=== PATIENT | female | born 1975 | race Caucasian/White ===

== ENCOUNTER 2022-02-09 11:38 | Observation (INO) ==
--- NOTE | 2022-02-09 11:49 | Emergency Department Note ---
History of Present Illness General Chief complaint: Vaginal Bleeding Stated complaint: VAGINAL BLEEDING FOR OVER A MONTH Time Seen by Provider: 02/09/22 11:47 History of Present Illness This 46-year-old female patient presents to the emergency department for evaluation of abnormal vaginal bleeding. She states that she has been having her period for the past month. The bleeding got significantly worse over the past 2 days. She is going through 4-5 large pads a day. Has been having blood clots the size of a ping pong ball the past 2 days. Usually has normal, mild, regular periods so this is abnormal for her. Her mom had significant periods whenever she started to go through menopause. She does not feel that she could be and does not feel that she is at risk for STIs. She also feels short of breath because of losing so much blood per patient. Had some mild chest discomfort walking to the car this morning, but no chest pain otherwise. History of artificial mitral heart valve and pacemaker and is on Coumadin. She sees Dr. Ocampo of cardiology and last saw him about 1.5 weeks ago and she was started on an oral iron supplement. She has not had any recent blood work to check for anemia per patient. Her last blood transfusion was May 2020. Allergies Allergy/AdvReac Type Severity Reaction Status Date / Time vancomycin AdvReac Verified 02/09/22 11:57 Past Med/Surg History Medical History Acute asthma exacerbation History of Coumadin therapy Pacemaker Surgical History H/O mitral valve replacement with mechanical valve Social History Smoking Status: Never smoker Preferred Language: Faroese Feels Safe at Home: Yes Review of Systems See HPI for pertinent positives & negatives. and A total of 10 systems reviewed and were otherwise negative Physical Exam Vital Signs Vital Signs - 24 hr 02/09/22 11:42 02/09/22 12:53 02/09/22 14:00 Temperature 36.6 C Temperature Source Temporal Artery Scan Pulse Rate 84 Pulse Rate [Apical] Pulse Rate [Finger] 70 64 Pulse Rhythm [Apical] Pulse Strength [Apical] Respiratory Rate 22 18 16 Respiratory Effort / Characteristics Respiratory Depth Respiratory Pattern Blood Pressure 122/68 Blood Pressure [Right Arm] 101/49 L 99/44 L Blood Pressure Mean 86 Blood Pressure Mean [Right Arm] 66 62 Blood Pressure Position [Right Arm] Pulse Oximetry 100 98 98 Oxygen Delivery Method Room Air Room Air Sepsis Recent Fever Within 48 Hours No Sepsis New/Unexplained Change in Mental Status No Sepsis Action Taken by Nursing No Action Required 02/09/22 16:00 02/09/22 16:44 Temperature 36.8 C Temperature Source Oral Pulse Rate Pulse Rate [Apical] 73 Pulse Rate [Finger] 92 H Pulse Rhythm [Apical] Regular Pulse Strength [Apical] Normal Respiratory Rate 18 18 Respiratory Effort / Characteristics Non-Labored Spontaneous Respiratory Depth Normal Respiratory Pattern Regular Blood Pressure Blood Pressure [Right Arm] 106/40 L 99/44 L Blood Pressure Mean Blood Pressure Mean [Right Arm] 62 62 Blood Pressure Position [Right Arm] Lying Pulse Oximetry 100 99 Oxygen Delivery Method Room Air Sepsis Recent Fever Within 48 Hours Sepsis New/Unexplained Change in Mental Status Sepsis Action Taken by Nursing VITALS: Vitals are noted on the nurse's note and reviewed by myself. GENERAL: 46-year-old female, who appears pale, but nontoxic and in no acute distress, non-diaphoretic, well-developed well-nourished. SKIN: Capillary refill <2 sec. No tenting of the skin. HEAD: Normocephalic, atraumatic. EARS: External auditory canals clear, tympanic membranes pearly garcia without erythema or effusion bilaterally. EYES: PERRLA. EOMI. Conjunctivae without injection, sclerae without icterus. NOSE: Patent without discharge. MOUTH: Mucous membranes moist. Uvula midline. Airway patent. NECK: Supple without nuchal rigidity. HEART: Regular rate and rhythm without artificial heart valve sound noted without other obvious murmurs, gallops, rubs. LUNGS: Clear to auscultation bilaterally without wheezes, rales or rhonchi. No retractions or accessory muscle use. ABDOMEN: Positive bowel sounds x 4. Normal tympanic percussion. Soft, nontender, without masses or organomegaly. Quintana sign negative. No guarding or rebound tenderness. No focal RLQ or LLQ tenderness. PELVIC EXAM: Permission to perform the exam. Editor Newspaper in the room for the exam. External genitalia normal. Vaginal vault with a large amount of bright red blood initially. The there were also multiple clots that were removed during the exam with continued bright red bleeding. Due to the patient's body habitus and the amount of bleeding I had difficulty visualizing the cervix or cervical os. No cervical motion tenderness. Uterus nontender. Adnexa nontender without obvious masses. MUSCULOSKELETAL: No gross musculoskeletal defects. NEURO: Patient was alert and oriented to person place and time. No focal neurological deficits. Course Administered Medications Discontinued Medications Sodium Chloride (Nss 1000ml) 1,000 mls @ 999 mls/hr IV .Q1H1M MERLE Stop: 02/09/22 13:15 Last Infusion: 02/09/22 16:08 Dose: 0 mls/hr Documented By: Admin: 02/09/22 12:51 Dose: 999 mls/hr Documented By: YEE Sodium Chloride (Nss 1000ml) 1,000 mls @ 999 mls/hr IV .Q1H1M ONE Stop: 02/09/22 15:52 Last Admin: 02/09/22 16:09 Dose: 999 mls/hr Documented By: YEE Estrogens Conjugated 25 mg/ (Syringe) 5 mls @ 1 mls/min IV NOW ONE Stop: 02/09/22 16:19 Last Admin: 02/09/22 16:19 Dose: 1 mls/min Documented By: YEE Medical Decision Making Differential Diagnosis Differential diagnosis includes hypermenorrhea, polymenorrhea, , , ectopic , endocrine abnormality, salpingitis, cervicitis, caogulopathy, neoplasm, polyps, ovarian cyst, myoma of uterus, hormonal i mmbalance, atrophic vaginitis, or others. Laboratory Data Attestation: I reviewed the patient's lab results. Result diagrams: 02/09/22 15:42 02/09/22 12:38 Lab Results 02/09/22 02/09/22 02/09/22 Range/Units 12:38 12:38 12:38 WBC 8.33 (4.8-10.8) K/ul RBC 1.80 L (3.93-5.22) M/uL Hgb 5.8 L* (12.0-16.0) g/dl Hct 17.5 L* (34.1-44.9) % MCV 97.2 (80.0-100.0) fL MCH 32.2 (25.0-34.0) pg MCHC 33.1 (32.0-36.0) g/dL RDW Std Deviation 49.8 H (36.4-46.3) fL RDW Coeff of Paco 14.3 (11.5-14.5) % Plt Count 241 (130-400) K/uL MPV 10.3 (9.4-12.3) fL Immature Gran % (Auto) 0.7 % Neut % (Auto) 85.5 % Lymph % (Auto) 8.8 % [place] % (Auto) 3.6 % Eos % (Auto) 0.7 % Baso % (Auto) 0.7 % Neut # (Auto) 7.12 H (1.4-6.5) K/uL Lymph # (Auto) 0.73 L (1.2-3.4) K/uL [place] # (Auto) 0.30 (0.24-0.82) K/uL Eos # (Auto) 0.06 (0-0.50) K/uL Baso # (Auto) 0.06 (0-0.2) K/uL Immature Gran # (Auto) 0.06 H (0.00-0.02) K/uL Polychromasia 1+ Tear Drop Cells 1+ PT 26.1 H (9.0-12.0) Seconds INR 2.6 H (0.9-1.1) APTT 30.1 (21.0-31.0) Seconds PTT Ratio 1.1 Sodium 134 L (136-145) mmol/L Potassium 3.9 (3.5-5.1) mmol/L Chloride 101 (98-107) mmol/L Carbon Dioxide 27 (21-32) mmol/L Anion Gap 6 (3-11) BUN 12 (6-23) mg/dl Creatinine 0.88 (0.6-1.2) mg/dl Est Cr Clr Drug Dosing 98.7 ml/min Est GFR ( Amer) 90.7 ml/min Est GFR (Non-Af Amer) 78.2 ml/min BUN/Creatinine Ratio 13.6 (10-20) Glucose 154 H (70-99(Fasting)) mg/dl Calcium 8.7 (8.5-10.1) mg/dl Total Bilirubin 0.5 (0.2-1.0) mg/dl AST 17 (13-39) U/L ALT 14 (7-52) U/L Alkaline Phosphatase 54 (34-104) U/L Troponin I High Sens < 2.3 (0-14) pg/ml Total Protein 6.5 (6.0-8.3) gm/dl Albumin 3.8 (3.4-5.0) gm/dl Globulin 2.7 (2.5-4.0) gm/dl Albumin/Globulin Ratio 1.4 (0.9-2) TSH (0.300-4.500) uIu/ml Free T4 (0.61-1.60) ng/dl HCG, Qual (Negative) Urine Color Urine Appearance (Clear) Urine pH (4.5-7.5) Ur Specific [place] (1.000-1.030) Urine Protein (Negative) Urine Glucose (UA) (Negative) Urine Ketones (Negative) Urine Blood (Negative) Urine Nitrite (Negative) Urine Bilirubin (Negative) Urine Urobilinogen (Negative) Ur Leukocyte Esterase (Negative) Urine WBC (Auto) (0-5) /hpf Urine RBC (Auto) (0-4) /hpf U Hyaline Cast (Auto) (0-5) /lpf U Epithel Cells (Auto) (0-5) /lpf Urine Bacteria (Auto) (Negative) Blood Type Blood Type Recheck Antibody Screen Antibody Identification Crossmatch 02/09/22 02/09/22 02/09/22 Range/Units 12:38 12:38 13:08 WBC (4.8-10.8) K/ul RBC (3.93-5.22) M/uL Hgb (12.0-16.0) g/dl Hct (34.1-44.9) % MCV (80.0-100.0) fL MCH (25.0-34.0) pg MCHC (32.0-36.0) g/dL RDW Std Deviation (36.4-46.3) fL RDW Coeff of Paco (11.5-14.5) % Plt Count (130-400) K/uL MPV (9.4-12.3) fL Immature Gran % (Auto) % Neut % (Auto) % Lymph % (Auto) % [place] % (Auto) % Eos % (Auto) % Baso % (Auto) % Neut # (Auto) (1.4-6.5) K/uL Lymph # (Auto) (1.2-3.4) K/uL [place] # (Auto) (0.24-0.82) K/uL Eos # (Auto) (0-0.50) K/uL Baso # (Auto) (0-0.2) K/uL Immature Gran # (Auto) (0.00-0.02) K/uL Polychromasia Tear Drop Cells PT (9.0-12.0) Seconds INR (0.9-1.1) APTT (21.0-31.0) Seconds PTT Ratio Sodium (136-145) mmol/L Potassium (3.5-5.1) mmol/L Chloride (98-107) mmol/L Carbon Dioxide (21-32) mmol/L Anion Gap (3-11) BUN (6-23) mg/dl Creatinine (0.6-1.2) mg/dl Est Cr Clr Drug Dosing ml/min Est GFR ( Amer) ml/min Est GFR (Non-Af Amer) ml/min BUN/Creatinine Ratio (10-20) Glucose (70-99(Fasting)) mg/dl Calcium (8.5-10.1) mg/dl Total Bilirubin (0.2-1.0) mg/dl AST (13-39) U/L ALT (7-52) U/L Alkaline Phosphatase (34-104) U/L Troponin I High Sens (0-14) pg/ml Total Protein (6.0-8.3) gm/dl Albumin (3.4-5.0) gm/dl Globulin (2.5-4.0) gm/dl Albumin/Globulin Ratio (0.9-2) TSH 15.625 H (0.300-4.500) uIu/ml Free T4 0.93 (0.61-1.60) ng/dl HCG, Qual Negative (Negative) Urine Color Urine Appearance (Clear) Urine pH (4.5-7.5) Ur Specific [place] (1.000-1.030) Urine Protein (Negative) Urine Glucose (UA) (Negative) Urine Ketones (Negative) Urine Blood (Negative) Urine Nitrite (Negative) Urine Bilirubin (Negative) Urine Urobilinogen (Negative) Ur Leukocyte Esterase (Negative) Urine WBC (Auto) (0-5) /hpf Urine RBC (Auto) (0-4) /hpf U Hyaline Cast (Auto) (0-5) /lpf U Epithel Cells (Auto) (0-5) /lpf Urine Bacteria (Auto) (Negative) Blood Type B Positive Blood Type Recheck Antibody Screen POSITIVE A Antibody Identification Anti-K Crossmatch See Detail 02/09/22 02/09/22 02/09/22 Range/Units 14:10 14:30 15:42 WBC (4.8-10.8) K/ul RBC (3.93-5.22) M/uL Hgb 5.3 L* (12.0-16.0) g/dl Hct 16.6 L* (34.1-44.9) % MCV (80.0-100.0) fL MCH (25.0-34.0) pg MCHC (32.0-36.0) g/dL RDW Std Deviation (36.4-46.3) fL RDW Coeff of Paco (11.5-14.5) % Plt Count (130-400) K/uL MPV (9.4-12.3) fL Immature Gran % (Auto) % Neut % (Auto) % Lymph % (Auto) % [place] % (Auto) % Eos % (Auto) % Baso % (Auto) % Neut # (Auto) (1.4-6.5) K/uL Lymph # (Auto) (1.2-3.4) K/uL [place] # (Auto) (0.24-0.82) K/uL Eos # (Auto) (0-0.50) K/uL Baso # (Auto) (0-0.2) K/uL Immature Gran # (Auto) (0.00-0.02) K/uL Polychromasia Tear Drop Cells PT (9.0-12.0) Seconds INR (0.9-1.1) APTT (21.0-31.0) Seconds PTT Ratio Sodium (136-145) mmol/L Potassium (3.5-5.1) mmol/L Chloride (98-107) mmol/L Carbon Dioxide (21-32) mmol/L Anion Gap (3-11) BUN (6-23) mg/dl Creatinine (0.6-1.2) mg/dl Est Cr Clr Drug Dosing ml/min Est GFR ( Amer) ml/min Est GFR (Non-Af Amer) ml/min BUN/Creatinine Ratio (10-20) Glucose (70-99(Fasting)) mg/dl Calcium (8.5-10.1) mg/dl Total Bilirubin (0.2-1.0) mg/dl AST (13-39) U/L ALT (7-52) U/L Alkaline Phosphatase (34-104) U/L Troponin I High Sens (0-14) pg/ml Total Protein (6.0-8.3) gm/dl Albumin (3.4-5.0) gm/dl Globulin (2.5-4.0) gm/dl Albumin/Globulin Ratio (0.9-2) TSH (0.300-4.500) uIu/ml Free T4 (0.61-1.60) ng/dl HCG, Qual (Negative) Urine Color Red Urine Appearance Turbid A (Clear) Urine pH 7.5 (4.5-7.5) Ur Specific [place] 1.036 H (1.000-1.030) Urine Protein 4+ H (Negative) Urine Glucose (UA) Trace H (Negative) Urine Ketones Negative (Negative) Urine Blood 3+ H (Negative) Urine Nitrite Negative (Negative) Urine Bilirubin Negative (Negative) Urine Urobilinogen Negative (Negative) Ur Leukocyte Esterase 1+ H (Negative) Urine WBC (Auto) 0 (0-5) /hpf Urine RBC (Auto) 0-4 (0-4) /hpf U Hyaline Cast (Auto) 0 (0-5) /lpf U Epithel Cells (Auto) 0-5 (0-5) /lpf Urine Bacteria (Auto) Negative (Negative) Blood Type Blood Type Recheck B Positive Antibody Screen Antibody Identification Crossmatch Imaging Data Radiologist's Impression: Pelvis Ultrasound 02/09/22 12:02 PELVIC ULTRASOUND, TRANSABDOMINAL AND TRANSVAGINAL HISTORY: abnormal vaginal bleeding COMPARISON: None. FINDINGS: Uterus: 11.1 x 4.3 x 4.5 cm. No uterine masses. There are few small nabothian cysts at the cervix. Endometrial stripe: 4 mm in thickness. Right ovary: Obscured by overlying bowel gas. No adnexal masses. Left ovary: Normal in size and demonstrates normal color flow. This contains a 4.1 cm simple cyst. Miscellaneous:No pelvic free fluid. IMPRESSION: 1. A 4.1 cm left ovarian cyst. This is likely benign. Follow-up pelvic ultrasound in 2-3 months should be performed to ensure resolution. 2. Normal uterus/endometrium. 3. The right ovary was obscured by overlying bowel gas. No adnexal masses identified. ACT 112: Negative or not required by law. Electronically signed by: Stanislav Ortega M.D. 02/09/2022 2:17 PM MDM Narrative I examined the patient. An IV lock was placed and labs were drawn. The patient was given a total of 2 L normal saline solution bolus and though her blood pressure was on the lower side, it remained stable. She declined any medication for pain. Serum was negative. Pelvic ultrasound was reviewed myself and read by radiology as above and shows a 4.1 cm left ovarian cyst which is lik reno benign. Normal uterus/endometrium. Hemoglobin did come back significantly low at 5.8 with hematocrit of 17.5. Normal platelet count. INR is 2.6 on Coumadin. Glucose elevated at 154 and sodium 134, but CMP otherwise unremarkable. TSH elevated at 15.625 - she is currently on levothyroxine. Urinalysis without obvious evidence for UTI. EKG showed sinus rhythm at 67 bpm with short NE interval, but no acute ST or T wave changes. Troponin was normal. Unfortunately due to the patient's abnormal antibodies on type and screen it was difficult to obtain blood for the patient. I was unable to see the cervix or cervical os on pelvic exam due to the patient's body habitus and the vaginal bleeding. I spoke with Dr. Victor of [facility] who came down to the emergency department to evaluate the patient. After discussion with cardiology, Dr. Victor gave the patient IV Premarin and her Coumadin will be held. Dr. Victor attempted to place a Jarrett in the uterus in the emergency department, but it was unsuccessful. The patient's repeat H&H showed a hemoglobin of 5.3 and hematocrit of 16.6 as we were still waiting for the blood products. Dr. Victor will take the patient to the OR for placement of balloon tamponade. Blood bank stated the blood products should be ready by the time the patient reached to the OR. The patient's care was transferred to Dr. Victor in stable condition. Please refer to her dictation for further details. Impression & Plan Severe anemia, H/O mitral valve replacement with mechanical valve, History of Coumadin therapy, Pacemaker, Abnormal uterine bleeding (AUB) Discharge Plan Visit Data Chief Complaint: Vaginal Bleeding Stated Complaint: VAGINAL BLEEDING FOR OVER A MONTH ED Provider: Ajay Ludwig ED Midlevel Provider: Milagros Sommer Patient Disposition: Admitted As Inpatient Forms Stand Alone Forms: [facility] Referrals Referrals: Jewel Sherman CRNP [Outside Practitioners] -
[2022-02-09] MEDS ORDERED: SODIUM CHLORIDE 0.9% 1000ML 1,000 ML IV SCH (12:15)
[2022-02-09 13:12] LABS: Hematocrit (blood only) 17.5 % (34.1-44.9); Hemoglobin 5.8 g/dl (12.0-16.0); Mean Corpuscular Hemoglobin 32.2 pg (25.0-34.0); Mean Corpuscular Hgb Conc 33.1 g/dL (32.0-36.0); Mean Corpuscular Volume 97.2 fL (80.0-100.0); Mean Platelet Volume 10.3 fL (9.4-12.3); Platelet Count 241 K/uL (130-400); RDW Coefficient of Variation 14.3 % (11.5-14.5); RDW Standard Deviation 49.8 fL (36.4-46.3); White Blood Count 8.33 K/ul (4.8-10.8)
[2022-02-09 13:16] LABS: Pregnancy Test, Serum Negative (Negative)
[2022-02-09 13:18] LABS: Alanine Aminotransferase 14 U/L (7-52); Albumin Globulin Ratio 1.4 (0.9-2); Albumin Level 3.8 gm/dl (3.4-5.0); Alkaline Phosphatase 54 U/L (34-104); Anion Gap 6 (3-11); Aspartate Aminotransferase 17 U/L (13-39); BUN Creatinine Ratio 13.6 (10-20); Bilirubin,Total 0.5 mg/dl (0.2-1.0); Blood Urea Nitrogen 12 mg/dl (6-23); Calcium 8.7 mg/dl (8.5-10.1); Carbon Dioxide 27 mmol/L (21-32); Chloride 101 mmol/L (98-107); Creatinine Clr Calc Pharmacy 98.7 ml/min; Est GFR (African American) 90.7 ml/min; Est GFR (Non-African American) 78.2 ml/min; Globulin 2.7 gm/dl (2.5-4.0); Glucose 154 mg/dl (70-99(Fasting)); INR 2.6 (0.9-1.1); Partial Thromboplastin Ratio 1.1; Partial Thromboplastin Time 30.1 Seconds (21.0-31.0); Potassium 3.9 mmol/L (3.5-5.1); Prothrombin Time 26.1 Seconds (9.0-12.0); Sodium 134 mmol/L (136-145); Total Protein 6.5 gm/dl (6.0-8.3)
[2022-02-09 13:22] LABS: Troponin I High Sensitivity < 2.3 pg/ml (0-14)
[2022-02-09 13:28] LABS: Basophils # (auto) 0.06 K/uL (0-0.2); Basophils % (auto) 0.7 %; Eosinophils # (auto) 0.06 K/uL (0-0.50); Eosinophils % (auto) 0.7 %; Immature Granulocytes # (auto) 0.06 K/uL (0.00-0.02); Immature Granulocytes % (auto) 0.7 %; Lymphocytes # (auto) 0.73 K/uL (1.2-3.4); Lymphocytes % (auto) 8.8 %; Monocytes % (auto) 3.6 %; Neutrophils # (auto) 7.12 K/uL (1.4-6.5); Neutrophils % (auto) 85.5 %; Polychromasia 1+; Tear Drop Cells 1+
[2022-02-09 13:31] LABS: Thyroid Stimulating Hormone 15.625 uIu/ml (0.300-4.500)
[2022-02-09] MEDS ORDERED: SODIUM CHLORIDE 0.9% 250 ML IV PRN ×2 (13:38→17:30)
[2022-02-09 14:05] LABS: T4 Free Thyroxine 0.93 ng/dl (0.61-1.60)
--- NOTE | 2022-02-09 14:19 | Ultrasound Report ---
PELVIC ULTRASOUND, TRANSABDOMINAL AND TRANSVAGINAL HISTORY: abnormal vaginal bleeding COMPARISON: None. FINDINGS: Uterus: 11.1 x 4.3 x 4.5 cm. No uterine masses. There are few small nabothian cysts at the cervix. Endometrial stripe: 4 mm in thickness. Right ovary: Obscured by overlying bowel gas. No adnexal masses. Left ovary: Normal in size and demonstrates normal color flow. This contains a 4.1 cm simple cyst. Miscellaneous:No pelvic free fluid. IMPRESSION: 1. A 4.1 cm left ovarian cyst. This is likely benign. Follow-up pelvic ultrasound in 2-3 months shoul d be performed to ensure resolution. 2. Normal uterus/endometrium. 3. The right ovary was obscured by overlying bowel gas. No adnexal masses identified. ACT 112: Negative or not required by law. Electronically signed by: Stanislav Ortega M.D. 02/09/2022 2:17 PM
--- NOTE | 2022-02-09 14:47 | Electrocardiogram Report ---
Test Reason : Blood Pressure : / mmHG Vent. Rate : 067 BPM Atrial Rate : 067 BPM P-R Int : 098 ms QRS Dur : 086 ms QT Int : 430 ms P-R-T Axes : 048 062 022 degrees QTc Int : 454 ms Sinus rhythm with sinus arrhythmia with short W[place] Otherwise normal ECG When compared with ECG of 22-AUG-2020 20:16, W[place] interval has decreased Confirmed by Ajay Kamara ([id number]) on 02/09/2022 2:46:56 PM Referred By: Juancho Catalan Confirmed By:Ajay Kamara
[2022-02-09] MEDS ORDERED: SODIUM CHLORIDE 0.9% 1000ML 1,000 ML IV ONE (14:52)
[2022-02-09 15:32] LABS: Bacteria Urine Automated Negative (Negative); Bilirubin Urine Negative (Negative); Blood Urine 3+ (Negative); Cast Urine Automated 0 /lpf (0-5); Epithelial Cell Urine Auto 0-5 /lpf (0-5); Glucose Urine UA Trace (Negative); Ketones Urine Negative (Negative); Leukocyte Esterase Urine 1+ (Negative); Nitrite Urine Negative (Negative); RBC Urine Automated 0-4 /hpf (0-4); Specific Gravity Urine 1.036 (1.000-1.030); Urobilinogen Urine Negative (Negative); WBC Urine Automated 0 /hpf (0-5); pH Urine 7.5 (4.5-7.5)
[2022-02-09 15:33] LABS: Color Urine Red; Protein Urine 4+ (Negative)
[2022-02-09 15:34] LABS: Appearance Urine Turbid (Clear)
--- NOTE | 2022-02-09 15:47 | OB/GYN Consultation ---
Date of Consultation February 09, 2022 Assessment & Plan (1) Severe anemia: (2) Abnormal uterine bleeding (AUB): (3) History of Coumadin therapy: Plan Patient with acute anemia with aub. No obvious lesion on u/s but lining thin. Doubt benefit from D&C but think balloon tamponade may be of benefit while we use IV premarin to try to stabilize lining. Patient has some strange ab+ blood and so I have not been able to get blood to transfuse for many hours and for this reason I do not want to risk not having another measure in place to help her bleeding, ie. rationale for balloon. I tried it at bedside but could not place. OR readied to take pt for EUA, poss D&C and balloon placement. Patient aware and agreeable and consent signed and reviewed. IV premarin is given. Did speak to cardiology, Hossein, who agrees that this is ok measure to trial (pt never with blood clot) and also ok with holding coumadin for 2-3d if needed. She may require further surgery if this management not successful, including emergency hysterectomy and she is aware. Anesthesia aware. >60min spent in and out at bedside, face to face and non face to face, documentation and coordination of care. History of Present Illness Reason for Consultation: acute vaginal bleeding, severe anemia Requesting Physician: Dr. Ludwig Attending Physician: Dr. Ludwig History of Present Illness 46yo with cc of heavy and prolonged vaginal bleeding with severe anemia who I am asked to see as psychology tech consult. Patient has been having mostly regular cycles. No psychology tech care in 5-15yrs she can't remember. She maybe skipped a cycle in oct but then had period at [facility] [place]. It went away but then came back about 5d after it stopped and has just become heavier and heavier. Using depends type pads in last few days and changing 5x/d. Opted to come to ER today. She takes coumadin for heart valve, no history of dvt/pe. Under the care of Dr. Catalan. Hgb in Er 5.8 today about noon and repeated recently 5.3. She feels dizzy and occasional SOB but ok otherwise. She notes sa but spouse had vasectomy. She had u/s done today with EL 4mm, uterus no obvious lesions. No history of abnormal paps. OBH: x 2 GYNH: nl pap history, very remote All Active Problems Pacemaker Acute asthma exacerbation History of Coumadin therapy H/O mitral valve replacement with mechanical valve Allergies Allergy/AdvReac Type Severity Reaction Status Date / Time vancomycin AdvReac Verified 02/09/22 11:57 Patient History Medical History Acute asthma exacerbation History of Coumadin therapy Pacemaker Surgical History H/O mitral valve replacement with mechanical valve Social History Smoking Status: Never smoker Preferred Language: Frisian Feels Safe at Home: Yes Review of Systems Constitutional: as per Subjective / HPI Physical Exam Constitutional: WD/WN, vitals as above Gastrointestinal (Abdomen): Percussion/Palpation: abdomen soft (obese); abdo men nontender and no guarding Neurologic: grossly normal Psychiatric: A+Ox3, euthymic affect Genitourinary: normal external appearance Speculum/Bimanual Exam: normal bimanual exam, normal appearance of the vagina, normal appearance of the cervix and + uterus enlarged (top normal); uterus nontender and no adnexal mass Bedside exam, attempt to place juarez in uterus but unable to do successfully despite holding anterior lip with ring. poor visualization. on exam x 2 by about one hr, 25cc clot in vault each time and no active bleeding from os but at least 20cc liquidy blood in vault. Results & Data ([facility]) Vital Signs (Past 12 Hours) Vital Signs Temp Pulse Pulse Resp BP BP Pulse Ox 02/09/22 14:00 64 16 99/44 L 98 02/09/22 12:53 70 18 101/49 L 98 02/09/22 11:42 97.9 F 84 22 122/68 100 O2 Del Method 02/09/22 14:00 02/09/22 12:53 Room Air 02/09/22 11:42 Room Air PG Care Time/CCT Total # of Minutes Spent Total Time Spent with Patient: Total time spent is greater than 50% in coordination of care (as documented) at patient's floor/unit and/or counseling patient: Coding Level of Care Code 59769 Office/OBS Consult Lvl 5 (57 - DECISION FOR SURGERY) Diagnoses Severe anemia D64.9 Abnormal uterine bleeding (AUB) N93.9 History of Coumadin therapy Z92.29
[2022-02-09] MEDS ORDERED: LIDOCAINE 2% MPF LOCAL 5 ML VIAL INFIL ONE ×2 (16:00→16:03)
[2022-02-09] MEDS ORDERED: ROCURONIUM BROMIDE 10 MG/ML 5 ML VIAL IV ONE ×5 (16:01)
[2022-02-09] MEDS ORDERED: PROPOFOL IV EMULSION 10 MG/ML 20 ML VIAL IV ONE (16:02)
[2022-02-09] MEDS ORDERED: ESTROGENS, CONJUGATED 25 MG in SYRINGE 0 ML IV ONE (16:15)
[2022-02-09 16:27] LABS: Hematocrit (blood only) 16.6 % (34.1-44.9); Hemoglobin 5.3 g/dl (12.0-16.0)
--- NOTE | 2022-02-09 16:43 | Anesthesiology Consultation ---
Date of Service February 09, 2022 Assessment & Plan Chart Review Chart Review: Acceptable Risk for Surgery Consults Requested none History Surgery Operation Date: 02/09/22 16:30 Proposed Procedures p Dilation and Afia Victor MD, FACOG Height/Weight Height: 5 ft 2 in Weight: 122.6 kg Allergies Allergy/AdvReac Type Severity Reaction Status Date / Time vancomycin AdvReac Verified 02/09/22 11:57 Past Medical History Medical History Acute asthma exacerbation History of Coumadin therapy Pacemaker Past Surgical History Surgical History H/O mitral valve replacement with mechanical valve Social History Smoking Status: Never smoker Physical Exam Vital Signs Last Vital Signs Temp 36.6 C 02/09/22 11:42 Pulse 92 H 02/09/22 16:00 Resp 18 02/09/22 16:00 BP 106/40 L 02/09/22 16:00 Pulse Ox 100 02/09/22 16:00 O2 Del Method 02/09/22 12:53 Testing Laboratory Results 02/09/22 15:42 02/09/22 12:38 PT 26.1 Seconds (9.0-12.0) H 02/09/22 12:38 INR 2.6 (0.9-1.1) H 02/09/22 12:38 APTT 30.1 Seconds (21.0-31.0) 02/09/22 12:38 Urine Color Red 02/09/22 14:30 Urine Appearance Turbid (Clear) A 02/09/22 14:30 Urine pH 7.5 (4.5-7.5) 02/09/22 14:30 Ur Specific [place] 1.036 (1.000-1.030) H 02/09/22 14:30 Urine Protein 4+ (Negative) H 02/09/22 14:30 Urine Glucose (UA) Trace (Negative) H 02/09/22 14:30 Urine Ketones Negative (Negative) 02/09/22 14:30 Urine Nitrite Negative (Negative) 02/09/22 14:30 Ur Leukocyte Esterase 1+ (Negative) H 02/09/22 14:30 Urine WBC (Auto) 0 /hpf (0-5) 02/09/22 14:30 Urine RBC (Auto) 0-4 /hpf (0-4) 02/09/22 14:30 U Hyaline Cast (Auto) 0 /lpf (0-5) 02/09/22 14:30 U Epithel Cells (Auto) 0-5 /lpf (0-5) 02/09/22 14:30 Urine Bacteria (Auto) Negative (Negative) 02/09/22 14:30 Blood Type B Positive 02/09/22 13:08 Antibody Screen POSITIVE A 02/09/22 13:08
[2022-02-09] MEDS ORDERED: MIDAZOLAM HCL 1 MG/ML 2ML VIAL ONE (17:35)
[2022-02-09] MEDS ORDERED: fentaNYL citrate 100 MCG/2 ML VIAL ONE ×2 (17:36→19:01)
[2022-02-09] MEDS ORDERED: ACETAMINOPHEN 325 MG TAB PO PRN (18:16)
[2022-02-09] MEDS ORDERED: diphenhydrAMINE 50 MG/ML VIAL ONE (18:16)
[2022-02-09] MEDS ORDERED: ONDANSETRON INJ 2 MG/ML 2 ML VIAL IV PRN ×2 (18:16→18:58)
--- NOTE | 2022-02-09 18:16 | Post Operative Brief Note ---
PG Immediate Post Op with CF Date of Surgery February 09, 2022 Pre & Post Diagnosis Operation Date: 02/09/22 16:30 <No data on this case meets the specified criteria> 1. AUB 2. Severe anemia I identified the patient and participated in the time-out.: Yes Procedure Operation Date: 02/09/22 16:30 <No data on this case meets the specified criteria> 1. EUA 2. D&C 3. Placement of balloon in uterus Surgeon Karolyn Victor MD, FACOG [employer] Worker none Estimated Blood Loss 50 Findings Consistent with Post-Op Diagnosis (uterus sounds to 10cm. min curettings. juarez balloon in uterus, only accepted about 10cc fluid before resistance met. ) Fluids 700cc crystalloid 2 u PRBCs Specimens Specimen Description: endometrial curettings. Drains Juarez Catheter Anesthesia Type General Complications none Disposition Accompanied Patient To Recovery: No Disposition: Recovery Room
[2022-02-09] MEDS ORDERED: ONDANSETRON INJ 2 MG/ML 2 ML VIAL ONE (18:17)
[2022-02-09] MEDS ORDERED: SUCCINYLCHOLINE CHLORIDE 20 MG/ML 10 ML VIAL IV ONE (18:17)
[2022-02-09] MEDS ORDERED: DEXAMETHASONE SOD INJ 4 MG/ML VIAL ONE (18:18)
--- NOTE | 2022-02-09 18:28 | Operative Report ---
PG Post Operative Report Pre & Post Diagnosis Operation Date: 02/09/22 16:30 <No data on this case meets the specified criteria> 1. AUB 2. Severe anemia I identified the patient and participated in the time-out.: Yes Procedure Operation Date: 02/09/22 16:30 <No data on this case meets the specified criteria> 1. Exam under anesthesia 2. Dilation and Curettage 3. Placement of balloon in uterus Surgeon Karolyn Victor MD, FACOG [employer] none Estimated Blood Loss 50 Findings Consistent with Post-Op Diagnosis (50cc blood in vagina as clot and fluid. no brisk bleeding from os, but steady trickle. uterus sounds to 10cm. min curettings. juarez balloon in uterus, only accepted about 10cc fluid before resistance met. ) Fluids 700cc crystalloid 2 u prbc Specimens endometrial curettings. Drains juarez, balloon in uterus Anesthesia Type General Complications none Disposition Accompanied Patient To Recovery: No Disposition: Recovery Room Indications 46yo with cc of aub and severe anemia for planned placement of balloon in uterus to tamponade while awaiting blood transfusion and use of hormone management. Patient aware of options and consented to proceed. Description of Procedure The patient was taken to the operating room and identified. After adequate general anesthesia was obtained, the patient was placed in the dorsolithotomy position and prepped and draped in usual sterile fashion. An exam under anesthesia was performed with the findings noted above. The cervix was visualized and grasped on the posterior lip with allis clamp and tenaculum on anterior lip. The cervix was sequentially dilated using Hegar dilators at int os, ext os palpably finger tip. Angle to internal os was sharp. The uterus was sounded and then curettaged to gritty consistency. A juarez balloon was threaded through os and filled with water but only admitted about 10cc. Clearly was in the uterus. Left in place. Bleeding watched and not active. Juarez placed to drain bladder. The patient was returned to the supine position and awoken from her anesthesia and transferred to the recovery room in stable condition. I attest to the content of the Intraoperative Record and any orders documented therein. Any exceptions are noted below. APPEALS COORDINATOR Other Procedure Codes [id number] Exam under Anesth (D&C and placement of balloon in uterus)
[2022-02-09] MEDS ORDERED: ePHEDrine sulfate 50 MG/ML AMP IV PRN (18:58)
[2022-02-09] MEDS ORDERED: HYDROmorphone INJ 2 MG/ML SYR/VIAL IV PRN (18:58)
[2022-02-09] MEDS ORDERED: PROMETHAZINE HCL 12.5 MG in SODIUM CHLORIDE 0.9% 50 ML IV PRN (18:58)
[2022-02-09] MEDS ORDERED: ATROPINE SULFATE 0.1 MG/ML 10ML SYR IV PRN (18:58)
[2022-02-09] MEDS ORDERED: MoRPHine SULFATE 10 MG/ML CARP/VIAL IV PRN (18:58)
[2022-02-09] MEDS ORDERED: fentaNYL citrate 100 MCG/2 ML VIAL IV PRN (18:58)
--- NOTE | 2022-02-09 19:33 | Anesthesiology Progress Note ---
Date of Service February 09, 2022 Anesthesia Post Procedure Vital Signs Vital Signs: Temp Pulse Pulse Pulse Resp BP BP 02/09/22 19:10 63 16 125/62 02/09/22 19:00 64 21 119/58 L 02/09/22 18:50 68 15 114/66 02/09/22 18:41 36.4 C L 72 22 113/59 L 02/09/22 18:43 68 22 02/09/22 16:44 36.8 C 73 18 99/44 L 02/09/22 16:00 92 H 18 106/40 L 02/09/22 14:00 64 16 99/44 L 02/09/22 12:53 70 18 101/49 L 02/09/22 11:42 36.6 C 84 22 122/68 Pulse Ox O2 Del Method FiO2 02/09/22 19:10 99 BiPAP 02/09/22 19:00 100 BiPAP 02/09/22 18:50 100 BiPAP 02/09/22 18:41 100 BiPAP 02/09/22 18:43 100 30 02/09/22 16:44 99 Room Air 02/09/22 16:00 100 02/09/22 14:00 98 02/09/22 12:53 98 Room Air 02/09/22 11:42 100 Room Air Pain Intensity Abdomen: Pain Intensity: 2 Transfer of Care Handoff Completed per policy Notes Mental Status: alert / awake / arousable and participated in evaluation Patient Amnestic to Procedure: Yes Nausea / Vomiting: adequately controlled Pain: adequately controlled Airway Patency, RR, SpO2: stable & adequate BP & HR: stable & adequate Hydration State: stable & adequate Anesthetic Complications: no major complications apparent
[2022-02-09] MEDS ORDERED: ESTROGENS, CONJUGATED 25 MG in SYRINGE 0 ML IV SCH ×2 (20:00)
--- NOTE | 2022-02-09 20:08 | Communication Note ---
Date of Service: February 09, 2022 update from nurse. peripad without blood, about 50cc in pacu. vss. will cont iv premarin, monitor for cont blood loss. hgb at 1030 if appropriate will allow po food. right now just sips and chips. kefzol added due to balloon in uterus. likely will remove by am if bleeding stable, will see how her hgb responds and hopefully stablilizes. i do not see her home meds are reconciled. 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 shared bulk of this info with nursing. of note, i am aware her tsh abnl, ? if she was really taking her synthroid. Will need to interview her about such. of note, earlier postop i did speak to her partner Bentley and made him aware of procedure and findings and plan.
[2022-02-09] MEDS: ceFAZolin 2000MG 2,000 MG/15 ML SYR IV SCH (20:40)
[2022-02-09] MEDS: LACTATED RINGER'S 1,000 ML IV SCH (22:20)
[2022-02-10] MEDS ORDERED: ESTROGENS, CONJUGATED 25 MG in SYRINGE 0 ML IV ONE (02:15)
[2022-02-10] MEDS ORDERED: oxyCODONE/ACETAMINOPHEN 5mg/325mg TAB PO PRN ×2 (03:03)
[2022-02-10] MEDS ORDERED: IBUPROFEN 600 MG TAB PO PRN (03:03)
[2022-02-10] MEDS: ceFAZolin 2000MG 2,000 MG/15 ML SYR IV SCH (05:23)
[2022-02-10] MEDS: LACTATED RINGER'S 1,000 ML IV SCH ×2 (06:13→14:53)
[2022-02-10] MEDS ORDERED: LEVOTHYROXINE SODIUM 175 MCG TABLET PO SCH (06:30)
[2022-02-10 06:34] LABS: Basophils # (auto) 0.04 K/uL (0-0.2); Basophils % (auto) 0.3 %; Hematocrit (blood only) 22.5 % (34.1-44.9); Hemoglobin 7.7 g/dl (12.0-16.0); Immature Granulocytes # (auto) 0.11 K/uL (0.00-0.02); Immature Granulocytes % (auto) 0.9 %; Lymphocytes # (auto) 1.26 K/uL (1.2-3.4); Lymphocytes % (auto) 9.8 %; Mean Corpuscular Hemoglobin 31.4 pg (25.0-34.0); Mean Corpuscular Hgb Conc 34.2 g/dL (32.0-36.0); Mean Corpuscular Volume 91.8 fL (80.0-100.0); Mean Platelet Volume 10.3 fL (9.4-12.3); Monocytes # (auto) 0.49 K/uL (0.24-0.82); Monocytes % (auto) 3.8 %; Neutrophils # (auto) 10.97 K/uL (1.4-6.5); Neutrophils % (auto) 85.2 %; Nucleated RBC # (auto) 0.02 K/uL (0-0); Nucleated RBC % (auto) 0.2 %; Platelet Count 246 K/uL (130-400); RDW Coefficient of Variation 15.3 % (11.5-14.5); RDW Standard Deviation 50.6 fL (36.4-46.3); Red Blood Count 2.45 M/uL (3.93-5.22); White Blood Count 12.87 K/ul (4.8-10.8)
[2022-02-10 07:02] LABS: INR 2.4 (0.9-1.1); Partial Thromboplastin Ratio 1.1; Partial Thromboplastin Time 28.9 Seconds (21.0-31.0); Prothrombin Time 24.5 Seconds (9.0-12.0)
[2022-02-10 07:05] LABS: Polychromasia 1+
--- NOTE | 2022-02-10 07:32 | Gynecologic Progress Note ---
Date of Service February 10, 2022 Assessment & Plan (1) Severe anemia: (2) Abnormal uterine bleeding (AUB): Plan patient doing well this am. will stop iv premarin and begin course of ocps. tid x 3d, bid x 2d, then qd x 6d in that pack and go right into new pack for 21 more daily pills and then expect bleeding. sully her hgb and poor cross match due to her antibodies and so will not give other blood for now. will see how she does today with the oral meds, rpt hgb at 2pm and then plan dc home if stable. ok to start coumadin tonight or hold one more night if any bleeding. needs to see pcp for her poor tsh which she admits is due to not taking her meds, enc her to do so. have made outpt arrangements for her to see me on feb 28, she is aware. she has pcp appt and enc to keep. she is aware of risks of course of trt like dvt, pe, elevated bp but need to do something to manage acute bleeding, pt verbalized understanding. Admission and Anticipated Discharge Date Admission Date: February 09, 2022 Subjective 46yo with cc of acute anemia and aub s/p balloon in uterus and iv premarin doing well this am. She denies any bleeding. Had appetite and ate last pm. No cp, sob. No fever. Review of Systems Constitutional: as per Subjective / HPI Physical Exam Constitutional: WD/WN, vitals as above Respiratory: normal respiratory effort, lungs clear to auscultation Cardiovascular: Rate/Rhythm: regular rate and regular rhythm Gastrointestinal (Abdomen): Percussion/Palpation: abdomen soft; abdomen nontender and no guarding Neurologic: grossly normal Psychiatric: A+Ox3, euthymic affect Genitourinary: normal external appearance (no bleeding noted, juarez in bladder and in uterus both removed) Results & Data ([facility]) Vital Signs (Past 12 Hours) Vital Signs Temp Pulse Resp BP BP Pulse Ox O2 Del Method 02/10/22 03:02 98.4 F 18 96 Room Air 02/09/22 22:53 98.8 F 67 18 122/52 L 91 Room Air 02/09/22 21:30 63 16 136/74 94 CPAP 02/09/22 21:00 98.1 F 68 16 95 CPAP 02/09/22 22:00 99.0 F 62 16 114/47 L 97 CPAP 02/09/22 21:03 60 16 128/58 L 92 CPAP 02/09/22 20:30 98.8 F 60 16 100/58 L 93 CPAP 02/09/22 20:00 62 16 98/56 L 94 CPAP 02/09/22 19:45 CPAP 02/09/22 19:45 98.1 F 63 16 119/49 L 100 CPAP O2 Flow Rate 02/10/22 03:02 02/09/22 22:53 02/09/22 21:30 6 02/09/22 21:00 6 02/09/22 22:00 6 02/09/22 21:03 6 02/09/22 20:30 6 02/09/22 20:00 6 02/09/22 19:45 02/09/22 19:45 6 PG Care Time/CCT Total # of Minutes Spent Total Time Spent with Patient: Total time spent is greater than 50% in coordination of care (as documented) at patient's floor/unit and/or counseling patient: Coding Level of Care Code None Diagnoses Severe anemia D64.9 Abnormal uterine bleeding (AUB) N93.9
[2022-02-10] MEDS: FERROUS SULFATE 325 MG TAB PO SCH ×3 (08:19→17:29)
[2022-02-10] MEDS: NORGESTIMATE/ETHINYL ESTRAD 0.25/0.035MG DSPK PO SCH ×2 (08:20→13:58)
[2022-02-10] MEDS ORDERED: HYDROXYCHLOROQUINE SULFATE 200 MG TAB PO SCH (09:00)
[2022-02-10] MEDS ORDERED: DOCUSATE SODIUM 100 MG CAP PO SCH (09:00)
[2022-02-10] MEDS ORDERED: sulfaSALAzine 500 MG TABEC PO SCH (09:00)
[2022-02-10] MEDS ORDERED: BUMETANIDE 1 MG TAB PO SCH (09:30)
[2022-02-10] MEDS ORDERED: CITALOPRAM 20 MG TAB PO SCH (21:00)
[2022-02-10] MEDS ORDERED: METOPROLOL SUCC 50MG EXT REL TAB PO SCH (21:00)
--- NOTE | 2022-02-11 11:14 | Discharge Summary ---
Date of Service Date of admission: Jan Date of discharge: February 10, 2022 Admission HPI Per Admitting Provider 46yo with heavy vaginal bleeding and severe anemia who was seen and evaluated in ER by [facility] at request of Dr. Ludwig. She was on coumadin for artificial valve but noted ongoing bleeding since [place] that she did not seek pathology laboratory aide care for prior to presenting to ER. An u/s showed lining to be 4mm and no obvious lesions/masses of uterus. She had a hgb of 5.8 and active vaginal bleeding although it had slowed compared to previous by her report. There was significant delay in providing her blood transfusions due to ultimately three positive antibodies in her blood and ultimately did get 2 uPRBCs. At that poing her hemoglobin had been repeated and was 5.3. Due to continued bleeding, IV premarin was begun and given possible utility of tamponade balloon patient did go to OR for EUA, D&C and placement of tamponade balloon. Her bleeding ultimately cessated. Her hemoglobin was monitored serially and was stable at 8. The balloon was removed in am of her dis charge and high dose ocps was begun. She tolerated her hemoglobin and was able to be discharged home on date above. Discharge Data Procedures Performed Operation Date: 02/09/22 16:30 Actual Procedures p Exam under anesthesia, Dilation and Curettage, and Placement of uterine balloon(Not Applicable) - Karolyn Victor MD, [facility] [place] Hospital Course (1) Abnormal uterine bleeding (AUB): (2) Severe anemia: (3) History of Coumadin therapy: Plan The overnight plan was as noted above. Patient was sent home after about 3 doses of iv premarin on high dose ocps, to take tid x 3d, bid x 2d and q d x 6d of that pack and then into new pack to take 21 days of daily pill and then expect withdrawal bleed. A discussion was held with patient prior to her discharge of her need to consider plan ongoing with her cycles, like cyclic ocps or mirena iud, hyster. She would prefer to avoid major surgery. She states her periods are not routinely heavy but admits to having baseline anemia and unclear to me that cause has been figured out. She notes having blood transfusions in past but unclear why, she thinks its due to her rheumatoid arthritis. She has some unmanaged medical problems for which she will see her pcp about. She needs to get her thyroid under control. She has appt with pcp in coming weeks. She will have followup in our office feb 28. She is advised to take iron TID and manage expected constipation accordingly. She is made aware of risks of ocps and high dose ocps to include heart attack, stroke, dvt, pe and . Coding Level of Care Code None Diagnoses Abnormal uterine bleeding (AUB) N93.9 Severe anemia D64.9 History of Coumadin therapy Z92.29
== END 2022-02-10 17:45 | disposition home or self-care (01) ==
LOC: ED 11:38 → OR 16:51 → 4E1 16:51